=== PATIENT | female | born 1990 | race African-American/Black ===

== ENCOUNTER 2018-01-22 11:35 | Inpatient (IN) | payer OTHER ==
[~2018-01-22 11:35] MED LIST: CITRIC ACID/SODIUM CITRATE 30 ML UNIT-DOSE CUP PO ONE; ELECTROLYTE-148 SOLN 500 ML IV ONE
[2018-01-22 11:55] VITALS: BMI 30.9
[2018-01-22] MEDS ORDERED: ELECTROLYTE-148 SOLN 1,000 ML IV SCH (12:00)
[2018-01-22] MEDS ORDERED: morphine SULFATE/Preservative Free 0.5 MG/ML (1cc Syringe) ONE (14:27)
[2018-01-22] MEDS ORDERED: ePHEDrine SULFATE 50 MG/1 ML AMPULE ONE (14:28)
[2018-01-22] MEDS ORDERED: OXYTOCIN 20 UNITS in 0.9% NS 20 UNIT/1,000 ML INFUS.BAG IV ONE ×2 (14:29→16:35)
[2018-01-22] MEDS ORDERED: CLINDAMYCIN PHOSPHATE 600 MG/4 ML VIAL ONE (14:30)
[2018-01-22] MEDS ORDERED: ALBUTEROL SO4 8 GM HFA INHALER IH PRN (14:36)
--- NOTE | 2018-01-22 14:43 | HP ---
Past Medical History - Primary Care Physician PCP:: Bryant Sullivan - Admission Chief Complaint: 39 weeks, previous c/s, request of repeat c/s History of Present Illness: 27 yo f 39 weeks, previous c/s, requesting repeat c/s. risks discussed , risks of repeat c/s discussed , cx clp, vx -3 mi , fhr cat 1, no contraction History Source: Patient Limitations to Obtaining History: No Limitations - Past Medical History Pulmonary: Yes: Asthma ...: 8 ...Para: 2 ...Term: 2 ...: 0 ...Spon : 0 ...Induced : 5 ...Multiple Gestation: 0 ...LMP: 04/23/17 ... Weeks Gestation by Dates: 39.1 ...EDC by Dates: 01/28/18 ...EDC by Sono: 01/30/18 Heme/Onc: Yes: Anemia - Past Surgical History Hx Myomectomy: No Hx Transabdominal Cerclage: No - Smoking History Smoking history: Never smoked Have you smoked in the past 12 months: No Aproximately how many cigarettes per day: 12 - Alcohol/Substance Use Hx Alcohol Use: No History of Substance Use: reports: Marijuana - Social History History of Recent Travel: No Home Medications - Allergies Allergies/Adverse Reactions: Allergies Allergy/AdvReac Type Severity Reaction Status Date / Time amoxicillin Allergy Mild Hives Verified 01/22/18 11:55 Penicillins Allergy Mild Hives Verified 01/22/18 11:55 - Home Medications Home Medications: Ambulatory Orders Albuterol Sulfate Inhaler - [Ventolin HFA Inhaler -] 2 inh PO Q4H PRN 11/17/14 Vitamins (Sjr) - 1 tab PO DAILY 01/24/15 Review of Systems - Review of Systems Constitutional: reports: No Symptoms Eyes: reports: No Symptoms HENT: reports: No Symptoms Neck: reports: No Symptoms Cardiovascular: reports: No Symptoms Respiratory: reports: No Symptoms Gastrointestinal: reports: No Symptoms Genitourinary: reports: No Symptoms Breasts: reports: No Symptoms Reported Musculoskeletal: reports: No Symptoms Integumentary: reports: No Symptoms Neurological: reports: No Symptoms Endocrine: reports: No Symptoms Hematology/Lymphatic: reports: No Symptoms Psychiatric: reports: No Symptoms Physical Exam - Maternity Vital Signs: Vital Signs Temperature 98.6 F 01/22/18 11:35 Pulse Rate 91 H 01/22/18 11:35 Respiratory Rate 18 01/22/18 11:35 Blood Pressure 114/73 01/22/18 11:35 O2 Sat by Pulse Oximetry (%) Constitutional: Yes: Well Nourished, No Distress, Calm Eyes: Yes: WNL, Conjunctiva Clear, EOM Intact HENT: Yes: WNL, Atraumatic, Normocephalic Neck: Yes: WNL, Supple, Trachea Midline Cardiovascular: Yes: WNL, Regular Rate and Rhythm Breast(s): Yes: WNL - Abdominal Exam/OB Fundal Height: 38 Number of Fetuses: Single Presentation: Vertex Contractions: Yes Regularity: Irritability Intensity: Unaware Monitor Mode: External Heart Rate Location: [facility] Category: I Accelerations: Uniform Decelerations: None
[2018-01-22] MEDS ORDERED: PHENYLEPHRINE HCL 10 MG/1 ML SINGLE DOSE VIAL ONE (14:46)
[2018-01-22] MEDS ORDERED: METHYLERGONOVINE MALEATE 0.2 MG/1 ML AMP IM PRN (15:34)
[2018-01-22] MEDS ORDERED: BENZOCAINE 20% 57 GM BOTTLE TP PRN (15:34)
[2018-01-22] MEDS ORDERED: oxyCODONE HCL 5 MG TABLET PO PRN (15:34)
[2018-01-22] MEDS ORDERED: BENZOCAINE 28 GM HEMORRHOIDAL OINTMENT PR PRN (15:34)
[2018-01-22] MEDS ORDERED: WITCH HAZEL 50% (TUCKS) 40 PAD/JAR PAD TP PRN (15:34)
[2018-01-22] MEDS ORDERED: IBUPROFEN 800 MG/8 ML IJ IVPB PRN (15:34)
[2018-01-22] MEDS ORDERED: OXYTOCIN 20 UNITS in 0.9% NS 20 UNIT/1,000 ML INFUS.BAG IV SCH (15:45)
[2018-01-22] MEDS ORDERED: DEXTROSE 5%-LACTATED RINGERS 1,000 ML IV SCH (15:45)
[2018-01-22] MEDS ORDERED: ONDANSETRON 4 MG/2 ML VIAL IVPUSH PRN (15:55)
--- NOTE | 2018-01-22 15:59 | SURG ---
Surgery Steam Train Driver Note Steam Train Driver: Lico Jaramillo PA-C Date of Service: 01/22/18 Diagnosis: 39 weeks, previous section...requesting repeat section Procedure: section I was present for the entirety of the operative procedure. For further detail, please refer to operative report. Visit type - Case Type Case Type: Scheduled - New patient This patient is new to me today: Yes Date on this admission: 01/22/18
[2018-01-22 20:18] LABS: COCAINE, UR NEGATIVE ng/ml (CUTOFF=300); METHADONE, UR NEGATIVE ng/ml (CUTOFF=300); OPIATES, URI NEGATIVE ng/ml (CUTOFF=300); PHENCYCLIDINE,URINE NEGATIVE ng/ml (CUTOFF=25); URINE AMPHETAMINES NEGATIVE ng/ml (CUTOFF=500); URINE BARBITURATES NEGATIVE ng/ml (CUTOFF=200); URINE BENZODIAZEPINES NEGATIVE ng/ml (CUTOFF=200)
--- NOTE | 2018-01-23 07:58 | PN ---
Progress Note (short form) - Note Progress Note: pod1, doing well, no c/o ,no excess vaginal bleeding Last Vital Signs Temp Pulse Resp BP Pulse Ox 98.3 F 80 20 103/55 L 100 01/23/18 05:00 01/23/18 05:00 01/23/18 06:00 01/23/18 05:00 01/22/18 16:50 abdomen soft, , no distension, no cva incision dry, clean no calf tenderness lochia mild plan ambulate, cbc, advance diet Problem List - Problems (1) with 39 completed weeks gestation Code(s): Z3A.39 - 39 WEEKS GESTATION OF (2) Previous section complicating Code(s): O34.219 - MATERNAL CARE FOR UNSP TYPE SCAR FROM PREVIOUS DEL
--- NOTE | 2018-01-23 08:11 | OP ---
DATE OF OPERATION: 01/22/2018 PREOPERATIVE DIAGNOSIS: , 39 weeks, 2 previous sections, request of repeat section. POSTOPERATIVE DIAGNOSIS: , 39 weeks, 2 previous sections, request of repeat section. PROCEDURE: Repeat low segment transverse section. SURGEON: Bryant Sullivan MD SHUTTLE VAN DRIVER: SUZY Shepard ANESTHESIA: Spinal. ANESTHESIOLOGIST: Campbell Bustamante DO ESTIMATED BLOOD LOSS: 500 mL. OPERATION: The patient was taken to the operating room, had adequate spinal anesthesia. Abdomen and perineum were prepped and draped. Pfannenstiel abdominal skin incision was made over the previous incision. Abdominal wall was cut layer by layer until peritoneum was exposed and incised. Upon entering the abdominal cavity, lower uterine segment was identified, and uterovesical fold of peritoneum was established, bladder was pushed down. Then, a low transverse uterine incision was made. Incision extended laterally. Amniotic sac was entered. Clear fluid, head delivered, nasopharynx was suctioned, and live baby was delivered without any difficulty in LOT position and cord around the neck x1. Placenta was delivered manually. Uterine cavity was cleaned of all remaining tissue. Uterine incision was closed in 2 layers, 1st layer with 0 Biosyn continuous suture, the 2nd layer with 0 Biosyn imbricating the 1st layer. Bladder flap was closed with 0 Biosyn continuous suture. Both tubes and ovaries were checked, were normal. No active bleeding was seen. All the lap pad, sponge, and instrument counts were correct. Then, peritoneum was closed with 0 Biosyn continuous suture, muscles were brought together with interrupted sutures of 0 Biosyn, fascia was closed with 0 Biosyn continuous suture, subcutaneous fat with interrupted suture of 0 Biosyn, and the skin was closed with 4-0 Biosyn subcuticular continuous suture. Patient tolerated the procedure well, left the OR in good condition. Blayne [id number]
[2018-01-23 08:15] LABS: BASO % 0.7 % (0-2.0); EOS % 0.4 % (0-4.5); HEMATOCRIT 33.6 % (32.4-45.2); HEMOGLOBIN 10.8 GM/dL (10.7-15.3); LYMPH % 31.3 % (8-40); MCH 27.7 pg (25.7-33.7); MCHC 32.2 g/dl (32.0-36.0); MEAN CELL VOLUME 85.8 fl (80-96); MEAN PLT VOLUME 8.2 fl (7.5-11.1); MONO % 12.2 % (3.8-10.2); NEUT % 55.4 % (42.8-82.8); PLATELET COUNT 193 K/MM3 (134-434); RBC 3.91 M/mm3 (3.60-5.2); RDW 14.6 % (11.6-15.6); WHITE BLOOD COUNT 7.7 K/mm3 (4.0-10.0)
--- NOTE | 2018-01-23 08:15 | PN ---
Progress Note (short form) - Note Progress Note: POD #1 - s/p repeat under spinal anesthesia with Duramorph. VSS. Pt. doing well, resting comfortably in bed. Has some itching - Benadryl given. Good pain control. No apparent anesthetic complications noted. Continue current care.
[2018-01-23] MEDS: ENOXAPARIN NA (PORCINE) 40 MG/0.4 ML DISP.SYRIN SQ SCH (09:29)
[2018-01-23] MEDS: diphenhydrAMINE HCL 25 MG CAPSULE (FP) PO PRN ×2 (09:29→17:27)
[2018-01-23] MEDS ORDERED: DIPHTH,PERTUSS(ACELL),TET 0.5 ML DISP.SYRIN IM ONE (10:00)
[2018-01-23] MEDS: SIMETHICONE 80 MG TAB.CHEW (FP) PO PRN ×2 (15:22→20:44)
[2018-01-23] MEDS: ACETAMINOPHEN 325 MG TABLET (FP) PO PRN ×2 (15:23→20:44)
[2018-01-23] MEDS: IBUPROFEN 600 MG TABLET (FP) PO PRN (15:23)
[2018-01-23] MEDS ORDERED: BISACODYL 10 MG SUPP.RECT PR PRN (15:34)
[2018-01-23] MEDS: oxyCODONE HCL 5 MG TABLET PO PRN (20:43)
[2018-01-24] MEDS: oxyCODONE HCL 5 MG TABLET PO PRN ×3 (06:00→14:00)
[2018-01-24] MEDS: ACETAMINOPHEN 325 MG TABLET (FP) PO PRN ×3 (06:00→14:00)
[2018-01-24] MEDS: SIMETHICONE 80 MG TAB.CHEW (FP) PO PRN ×4 (06:00→20:33)
--- NOTE | 2018-01-24 07:48 | PN ---
Post Progress Note - Subjective Subjective: c/o pain scale max 8/10, relieved by oxycodone voiding without difficulty Post Day: 2 Type of Delivery: Repeat C/S Vital Signs: Vital Signs Temperature 98.7 F 01/23/18 21:00 Pulse Rate 89 01/23/18 21:00 Respiratory Rate 20 01/23/18 21:00 Blood Pressure 118/89 01/23/18 21:00 O2 Sat by Pulse Oximetry (%) 100 01/23/18 09:00 Breast Exam: Yes: Soft, Other (bottle feeding ). No: Engorged Uterus: Yes: Fundus Firm, Fundus @ umbilicus Incision: Yes: Sutures intact. No: Redness, Oozing Abdomen/GI: Yes: Abdomen soft, Passing flatus (bm not done yet ), Tolerating PO (diet ). No: Abdominal Distention, Tender Lochia: Yes: Rubra Lochia, amount: Moderate Extremities: Yes: Calves non-tender Perineum: Yes: Intact Activity: Ambulating - Labs Labs: CBC WBC 7.7 K/mm3 (4.0-10.0) 01/23/18 07:10 RBC 3.91 M/mm3 (3.60-5.2) 01/23/18 07:10 Hgb 10.8 GM/dL (10.7-15.3) 01/23/18 07:10 Hct 33.6 % (32.4-45.2) 01/23/18 07:10 MCV 85.8 fl (80-96) 01/23/18 07:10 MCH 27.7 pg (25.7-33.7) 01/23/18 07:10 MCHC 32.2 g/dl (32.0-36.0) 01/23/18 07:10 RDW 14.6 % (11.6-15.6) 01/23/18 07:10 Plt Count 193 K/MM3 (134-434) D 01/23/18 07:10 MPV 8.2 fl (7.5-11.1) 01/23/18 07:10 Absolute Neuts (auto) 4.2 K/mm3 (1.5-8.0) 01/23/18 07:10 Neutrophils % 55.4 % (42.8-82.8) 01/23/18 07:10 Lymphocytes % 31.3 % (8-40) 01/23/18 07:10 Monocytes % 12.2 % (3.8-10.2) H 01/23/18 07:10 Eosinophils % 0.4 % (0-4.5) 01/23/18 07:10 Basophils % 0.7 % (0-2.0) 01/23/18 07:10 Nucleated RBC % 0 % (0-0) 01/23/18 07:10 Problem List - Problems (1) Encounter for assessment Code(s): Z39.2 - ENCOUNTER FOR ROUTINE FOLLOW-UP (2) delivery, delivered, current hospitalization Code(s): O82 - ENCOUNTER FOR DELIVERY WITHOUT INDICATION Assessment/Plan stable plan ct po care
[2018-01-24] MEDS: ENOXAPARIN NA (PORCINE) 40 MG/0.4 ML DISP.SYRIN SQ SCH (10:45)
[2018-01-24] MEDS: IBUPROFEN 600 MG TABLET (FP) PO PRN (20:33)
[2018-01-24] MEDS ORDERED: SENNOSIDES/DOCUSATE COMBO (SENNA PLUS) TABLET (UD) PO PRN (22:00)
[2018-01-25 00:45] LABS: BASO % 0.5 % (0-2.0); EOS % 0.2 % (0-4.5); HEMATOCRIT 33.9 % (32.4-45.2); HEMOGLOBIN 11.7 GM/dL (10.7-15.3); LYMPH % 15.1 % (8-40); MCHC 34.4 g/dl (32.0-36.0); MEAN CELL VOLUME 87.1 fl (80-96); MONO % 7.9 % (3.8-10.2); NEUT % 76.3 % (42.8-82.8); PLATELET COUNT 214 K/MM3 (134-434); RBC 3.89 M/mm3 (3.60-5.2); WHITE BLOOD COUNT 9.3 K/mm3 (4.0-10.0)
[2018-01-25] MEDS: SIMETHICONE 80 MG TAB.CHEW (FP) PO PRN (07:39)
[2018-01-25] MEDS: ACETAMINOPHEN 325 MG TABLET (FP) PO PRN (07:39)
[2018-01-25] MEDS: IBUPROFEN 600 MG TABLET (FP) PO PRN (07:39)
[2018-01-25 08:01] VITALS: BP 129/75; PULSE 80; TEMP 98.2
[2018-01-25] MEDS: ENOXAPARIN NA (PORCINE) 40 MG/0.4 ML DISP.SYRIN SQ SCH (09:14)
--- NOTE | 2018-01-25 16:37 | PATH ---
Surgical Pathology Report Patient Name: MARITZA EDWARDS [facility]. Rec. #: [id number] /Age/Gender: 1990 (Age: 27) / F Account: [id number] Location: [facility] Taken: 01/22/2018 Received: 01/23/2018 Reported: 01/25/2018 Physicians: Bryant Sullivan M.D. Specimen(s) Received PLACENTA Clinical History 39.1 weeks' gestation, , repeat x2 Final Diagnosis PLACENTA, SECTION: 567 G THIRD TRIMESTER PLACENTA WITH TRIVASCULAR UMBILICAL CORD AND UNREMARKABLE PLACENTAL MEMBRANES. Electronically Signed Dorina Daley M.D. Gross Description The specimen is received fresh labeled placenta and is a 567 gram, 20.0 x 16.0 x 2.3 cm. placenta with attached membranes and umbilical cord. The attached membranes are pinzon, translucent with focal opacities and insert marginally. The umbilical cord measures 49 cm. in length and averages 1.2 cm. in diameter. The cord inserts eccentrically, 4.5 cm. to the nearest margin. No true knots or strictures are identified. Cut surface of the umbilical cord reveals 3 vessels. The surface is pulido-blue with minimal fibrin deposition and appropriate caliber vessels. The maternal surface is red-brown with focal defects. Sectioning reveals red-brown, spongy parenchyma. No lesions are identified. Gastroenterologist sections are submitted in three cassettes as follows: 1- membrane rolls and umbilical cord; 2-3- full thickness sections of placenta. /01/24/201801/24/2018
== END 2018-01-25 12:50 | disposition home or self-care (01) | DRG 540 ==
LOC: JLDR 11:35 → J3W 17:22
PROVIDERS: ADMIT Obstetrics & Gynecology; ATTEND Obstetrics & Gynecology
PROC: 10D00Z1 Extraction of Products of Conception, Low, Open Approach (ICD-10-PCS; principal; 2018-01-22)
DX: O34.211 Maternal care for low transverse scar from previous cesarean delivery (principal); O69.81X0 Labor and delivery complicated by cord around neck, without compression, not applicable or unspecified; O26.893 Other specified pregnancy related conditions, third trimester; J45.909 Unspecified asthma, uncomplicated; Z3A.39 39 weeks gestation of pregnancy; Z37.0 Single live birth
CPT/HCPCS: 36415; 80307; 85025; 87389; 88307-TC; 90715

== ENCOUNTER 2020-10-24 14:03 | Emergency (ER) | payer OTHER ==
[2020-10-24 14:10] VITALS: BMI 32.9
[2020-10-24] MEDS ORDERED: ALBUTEROL SO4 2.5/IPRATROPIUM 0.5 INH SOL 3 ML VIAL.NEB. NEB ONE ×2 (14:23→14:47)
[2020-10-24] MEDS ORDERED: methylPREDNISolone NA SUCC 125 MG/2 ML VIAL IM ONE (14:23)
[2020-10-24] MEDS ORDERED: SODIUM CHLORIDE FOR INHALATION 3 ML VIAL.NEB IH ONE (14:25)
[2020-10-24] MEDS ORDERED: methylPREDNISolone NA SUCC 125 MG/2 ML VIAL ONE (14:45)
[2020-10-24 15:43] VITALS: BP 145/79; PULSE 100
[2020-10-24 15:44] VITALS: TEMP 100.4
[2020-10-24] MEDS ORDERED: ACETAMINOPHEN 500 MG TABLET (FP) PO ONE (15:47)
[2020-10-24] MEDS ORDERED: ACETAMINOPHEN 500 MG TABLET (FP) ONE (15:48)
== END 2020-10-24 16:37 | disposition home or self-care (01) ==
LOC: JER 14:03
PROC: 3E0F7GC Introduction of Other Therapeutic Substance into Respiratory Tract, Via Natural or Artificial Opening (ICD-10-PCS; principal; 2020-10-24)
PROC: 3E023GC Introduction of Other Therapeutic Substance into Muscle, Percutaneous Approach (ICD-10-PCS; principal; 2020-10-24)
DX: J45.41 Moderate persistent asthma with (acute) exacerbation (principal); B34.9 Viral infection, unspecified
CPT/HCPCS: 71046-TC-FY; 99284-25; C9803; U0003; U0005

== ENCOUNTER 2021-03-27 08:57 | Emergency (ER) | payer OTHER ==
[2021-03-27 09:04] VITALS: BP 121/84; PULSE 78; TEMP 98; BMI 28.3
[2021-03-28 20:07] LABS: SARS-CoV-2 NAA Not Detected (Not Detected)
== END 2021-03-27 11:52 | disposition home or self-care (01) ==
LOC: JER 08:57
DX: R05.1 Acute cough (principal); R06.02 Shortness of breath; R09.81 Nasal congestion; R51.9 Headache, unspecified
CPT/HCPCS: 71046-TC-FY; 87804; 99284-25; C9803-CS; U0003; U0005

== ENCOUNTER 2023-01-11 10:52 | Emergency (ER) | payer OTHER ==
[2023-01-11 11:05] VITALS: BP 140/87; PULSE 78; RESP 18; TEMP 99; BMI 32.9
== END 2023-01-11 11:35 | disposition left against medical advice (07) ==
LOC: JER 10:52
DX: R07.9 Chest pain, unspecified (principal); R53.1 Weakness; R42 Dizziness and giddiness; R05.9 Cough, unspecified; R11.2 Nausea with vomiting, unspecified; R50.9 Fever, unspecified; N63.31 Unspecified lump in axillary tail of the right breast
CPT/HCPCS: 93005; 93010; 99283-25

== ENCOUNTER 2023-01-11 13:20 | Emergency (ER) | payer OTHER ==
[2023-01-11 13:38] VITALS: BP 134/79; PULSE 77; RESP 18; TEMP 98.5; BMI 32.9
[2023-01-11] MEDS ORDERED: SODIUM CHLORIDE 0.9% 500 ML INFUS.BAG IV ONE (14:29)
[2023-01-11] MEDS ORDERED: ACETAMINOPHEN 1000 MG/100 ML BAG IVPB ONE (14:29)
[2023-01-11] MEDS ORDERED: ACETAMINOPHEN INJECTION 100 ML IVPB ONE (14:51)
[2023-01-11 15:16] LABS: EOS % 1.2 % (0-4.5); HEMATOCRIT 42.1 % (32.4-45.2); HEMOGLOBIN 13.3 GM/dL (10.7-15.3); LYMPH % 55.4 % (8-40); MCH 27.9 pg (25.7-33.7); MCHC 31.5 g/dl (32.0-36.0); MEAN CELL VOLUME 88.6 fl (80-96); MEAN PLT VOLUME 7.6 fl (7.5-11.1); MONO % 9.2 % (3.8-10.2); NEUT % 33.2 % (42.8-82.8); PLATELET COUNT 342 10^3/uL (134-434); RBC 4.75 M/mm3 (3.60-5.2); RDW 13.8 % (11.6-15.6); WHITE BLOOD COUNT 4.1 K/mm3 (4.0-10.0)
[2023-01-11 15:39] LABS: CALCIUM 8.7 mg/dL (8.5-10.1)
[2023-01-11 15:40] LABS: BLOOD UREA NITROGEN 8.8 mg/dL (7-18)
[2023-01-11 15:43] LABS: CREATININE 0.5 mg/dL (0.55-1.3)
[2023-01-11] MEDS ORDERED: DEXAMETHASONE SOD PHOSPHATE 10 MG/1 ML VIAL IVPUSH ONE (16:17)
[2023-01-11] MEDS ORDERED: DEXAMETHASONE SOD PHOSPHATE 10 MG/1 ML VIAL ONE (18:13)
== END 2023-01-11 19:10 | disposition home or self-care (01) ==
LOC: JER 13:20
PROC: 3E033NZ Introduction of Analgesics, Hypnotics, Sedatives into Peripheral Vein, Percutaneous Approach (ICD-10-PCS; principal; 2023-01-11)
PROC: 3E033GC Introduction of Other Therapeutic Substance into Peripheral Vein, Percutaneous Approach (ICD-10-PCS; 2023-01-11)
DX: R07.9 Chest pain, unspecified (principal); R50.9 Fever, unspecified; R05.9 Cough, unspecified; R21 Rash and other nonspecific skin eruption; J40 Bronchitis, not specified as acute or chronic; I89.0 Lymphedema, not elsewhere classified
CPT/HCPCS: 36415; 76882-TC-RT-FY; 80048; 84484; 84703; 85025; 99284-25; J1100